=== PATIENT | male | born 1985 | race Caucasian/White ===

== ENCOUNTER 2019-01-03 12:58 | Emergency (ER) | payer OTHER ==
[2019-01-03 13:05] VITALS: BP 144/89
[2019-01-03] MEDS ORDERED: DEXAMETHASONE 10 MG/ML VIAL PO STA (13:19)
--- NOTE | 2019-01-03 13:22 | ED Physician Documentation ---
PD HPI HEENT - Stated complaint Stated Complaint: EYE IRRITATION - Chief complaint Chief Complaint: Heent - History obtained from History obtained from: Patient - History of Present Illness Timing - onset: How many days ago (3) Timing - duration: Days (3) Timing - details: Gradual onset, Still present Location: Right ear, Throat, Other (eyes are red) Worsens: Sw[place]lowing Associated symptoms: Congestion, Rhinorrhea, Cough. No: Fever Similar symptoms before: Has not had sx before Recently seen: Not recently seen - Additional information Additional information: 33-year-old [employer] [place] male personnel has developed a cough and congestion over the past 3 days and he has noted redness to his eyes. They are a bit itchy but there is no drainage. He does have a little bit of muffled hearing in the right ear. Review of Systems Constitutional: denies: Fever, Myalgias Eyes: reports: Irritation. denies: Decreased vision, Photophobia Ears: reports: Ear pain, Other (muffled hearing on the right is mild) Nose: reports: Rhinorrhea / runny nose, Congestion Throat: reports: Sore throat Cardiac: denies: Chest pain / pressure, Palpitations Respiratory: reports: Cough. denies: Dyspnea GI: denies: Nausea, Vomiting PD PAST MEDICAL HISTORY - Past Medical History Past Medical History: No - Past Surgical History Past Surgical History: No - Present Medications Home Medications: Ambulatory Orders Medication Instructions Recorded Confirmed Amox/Clav 875/125 [Augmentin] 1 each PO Q12H #20 tablet 01/03/19 - Allergies Allergies/Adverse Reactions: Allergies Allergy/AdvReac Type Severity Reaction Status Date / Time No Known Drug Allergies Allergy Verified 01/03/19 13:05 - Social History Does the pt smoke?: Yes Smoking Status: Current every day smoker Does the pt drink ETOH?: Yes Does the pt have substance abuse?: No - Immunizations Immunizations are current?: Yes - POLST Patient has POLST: No PD ED PE NORMAL - Vitals Vital signs reviewed: Yes (hypertension ) - General General: Alert and oriented X 3, No acute distress, Well developed/nourished - HEENT HEENT: Atraumatic, PERRL, EOMI, Other (Right TM is markedly inflamed centrally with rounding of the landmarks. The left is clear. The eyes have uniform injection of the sclera without exudate. 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 He is treated for this with use of dexamethasone and we will put him on some Augmentin. Departure - Departure Disposition: 01 Home, Self Care Clinical Impression: Viral conjunctivitis of both eyes Otitis media Qualifiers: Otitis media type: suppurative Chronicity: acute Laterality: right Recurrence: not specified as recurrent Spontaneous tympanic membrane rupture: without spontaneous rupture Qualified Code(s): H66.001 - Acute suppurative otitis media without spontaneous rupture of ear drum, right ear Condition: Stable Instructions: ED Otitis Media Acute Adult Follow-Up: MARIA L JOHNSON DO [Primary Care Provider] - Prescriptions: Amox/Clav 875/125 [Augmentin] 1 each PO Q12H #20 tablet
== END 2019-01-03 13:30 | disposition home or self-care (01) ==
LOC: ED 12:58
DX: B30.9 Viral conjunctivitis, unspecified (principal); H66.001 Acute suppurative otitis media without spontaneous rupture of ear drum, right ear; F17.200 Nicotine dependence, unspecified, uncomplicated
CPT/HCPCS: 99283